=== PATIENT | female | born 1970 | race Caucasian/White ===

== ENCOUNTER 2020-12-11 11:31 | Outpatient (CLI) | payer OTHER, SELFPAY ==
--- NOTE | 2020-12-11 11:34 | MM_ITS ---
WS: [id number] Exam: [id number] Date/Time of Exam: 12/11/2020 11:51 AM Reason For Exam: SCREENING VIEWS: MLO and CC views both breasts. Comparison made with prior exam of 04/05/2017. Findings: There was no sign of mass, architectural distortion or suspicious calcification in either breast. He terogeneously [place] MM/[place] [id number] Impression: BI-RADS: 2-Benign FOLLOW-UP: 1 Year Follow-up This mammogram was also analyzed by the Computer Aided Detection System [employer]2 [employer].
== END 2020-12-11 11:32 | disposition home or self-care (01) ==
LOC: RADSHAW 11:32
PROVIDERS: PCP Nurse Practitioner; Visit Provider Nurse Practitioner
DX: Z12.31 Encounter for screening mammogram for malignant neoplasm of breast (principal)
CPT/HCPCS: 77067

== ENCOUNTER 2022-06-09 10:02 | Outpatient (CLI) | payer OTHER, SELFPAY ==
--- NOTE | 2022-06-09 10:08 | MM_ITS ---
WS: [id number] Exam: [id number] Date/Time of Exam: 06/09/2022 10:08 AM Reason For Exam: SCREENING VIEWS: MLO and CC views both breasts. 3D digital tomosynthesis is also included in this exam. Comparison made with prior exam of 02/05/2015, 04/06/2016, 04/05/2017, 06/20/2018, 10/31/2019, 12/11/2020.. Findings: There was no sign of mass, architectural distortion or suspicious calcification in either breast. Sc attered fibroglandular densities MM/[place] [id number] Impression: BI-RADS: 2-Benign FOLLOW-UP: 1 Year Follow-up This mammogram was also analyzed by the Computer Aided Detection System R2 Imag e [employer]er [employer].
== END 2022-06-09 10:03 | disposition home or self-care (01) ==
PROVIDERS: PCP Family Medicine; Visit Provider Family Medicine
DX: Z12.31 Encounter for screening mammogram for malignant neoplasm of breast (principal)
CPT/HCPCS: 77063; 77067

== ENCOUNTER → 2022-12-20 13:54 | Outpatient (BNVA) | payer OTHER, SELFPAY | PROVIDERS: PCP Family Medicine; Visit Provider Podiatrist Foot & Ankle Surgery | DX: Q82.8 Other specified congenital malformations of skin (principal) | CPT/HCPCS: 17110; 99203 ==